=== PATIENT | male | born 1955 | race African-American/Black ===

== ENCOUNTER 2018-09-26 09:03 | Outpatient (CLI) | payer MEDICARE, MEDICAID ==
[~2018-09-26 09:03] MED LIST: Iopamidol 300 61% 100 ML VIAL FS ONE
--- NOTE | 2018-09-26 14:36 | CT ---
CT ABDOMEN AND PELVIS WITH IV CONTRAST: 09/26/2018 PROVIDED CLINICAL HISTORY: Colon mass. FINDINGS: The visualized lung bases are free of significant opacity. There are several tiny hypodensities involving the right hepatic lobe, too small to definitively glenn acterize. These could reflect cysts. The spleen, pancreas, kidneys, and adrenal glands appear unrem arkable, with the exception of a small left renal cyst. There is a focal area of apparent irregular mural thickening involving the descending colon, which ap pears somewhat redundant and tortuous in its mid portion. There are several lymph nodes within the a djacent mesentery, not pathologically enlarged but conspicuous given their proximity to the apparent mass. There is no bowel dilatation, inflammatory fat stranding, free fluid, or lymph node enlargement appar ent. There is a fat-containing right inguinal hernia. Vascular calcifications are seen. The osseous structures demonstrate no concerning osteoblastic or osteolytic lesions. Lower lumbar sp ine degenerative changes are seen. IMPRESSION: 1. Irregular focus of mural thickening involving the descending colon, presumably reflecting the pro vided clinical history of colon mass. 2. Adjacent mesenteric lymph nodes are seen, which could reflect local metastatic disease. 3. Tiny hepatic hypodensities, too small to definitively characterize. These could reflect cysts. Consider followup. POS: [facility]
== END 2018-09-26 09:04 | disposition home or self-care (01) ==
LOC: SCSCT 09:03
PROVIDERS: ATTEND Surgery
DX: K63.9 Disease of intestine, unspecified (principal); K63.89 Other specified diseases of intestine; K76.89 Other specified diseases of liver
CPT/HCPCS: 74177; 82565

== ENCOUNTER 2018-10-09 07:33 | Observation (INO) | payer MEDICARE, MEDICAID ==
[2018-10-09 08:39] LABS: #Eosinphils 0.1 thou/uL (0.0-0.7); #Monocytes 0.7 thou/uL (0.11-0.59); #Neutrophils 5.6 thou/uL (1.40-6.50); %Basophils 0.3 % (0.0-1.0); %Lymphocytes 12.9 % (21.0-51.0); %Monocytes 8.9 % (0.0-10.0); %Neutrophils 75.9 % (42.0-75.0); Hemoglobin 10.3 g/dL (14.0-18.0); Mean Corpuscular HGB CONC 31.3 g/dL (32.0-36.0); Mean Corpuscular Hemoglobin 26.7 pg (27.0-31.0); Mean Corpuscular Volume 85.1 fL (78.0-98.0); Mean Platelet Volume 7.3 fL (7.4-10.4); Platelet Count 365 thou/uL (130-400); RBC Distribution Width 13.2 % (11.5-14.5); Red Blood Cell (RBC) Count 3.86 mill/uL (4.70-6.10); White Blood Cell (WBC) Count 7.4 thou/uL (4.8-10.8)
[2018-10-09 09:05] LABS: INR-International Normal Ratio 1.1; PTT 27.2 SEC (22.9-36.1); Prothrombin Time 14.7 SEC (12.0-14.7)
[2018-10-09 09:11] LABS: ALT (SGPT) 17 U/L (8-55); AST (SGOT) 19 U/L (5-34); Alkaline Phosphatase 143 U/L (40-150); Anion Gap 14 mmol/L (10-20); BUN (Urea Nitrogen) 17 mg/dL (8.4-25.7); Bilirubin, Total 0.6 mg/dL (0.2-1.2); CK (CPK) 117 U/L (30-200); Calc. Creatinine Clearance 0 mL/min (70-130); Calcium 9.3 mg/dL (7.8-10.44); Carbon Dioxide 25 mmol/L (23-31); Chloride 103 mmol/L (98-107); Estimated GFR-MDRD 89; Globulin 2.6 g/dL (2.4-3.5); Glucose 95 mg/dL (80-115); Potassium 4.3 mmol/L (3.5-5.1); Protein, Total 6.6 g/dL (5.8-8.1); Sodium 138 mmol/L (136-145)
[2018-10-09 09:15] LABS: CKMB 0.8 ng/mL (0-6.6); Troponin I Less than 0.010 ng/mL (< 0.028)
[2018-10-09 10:18] LABS: Bilirubin Negative (Negative); Blood, Urine Negative (Negative); Clarity CLEAR (Clear); Glucose, Urine (Dipstick) Negative (Negative); Leukocyte Negative (Negative); Nitrite Negative (Negative); Protein, Urine (Dipstick) Trace mg/dL (Neg-Trace); Specific Gravity, Urine 1.024 (1.002-1.036); pH, Urine 6.5 (5.0-9.0)
[2018-10-09 11:45] VITALS: BMI 24.5
[2018-10-09] MEDS ORDERED: Ondansetron PF 4 MG/2 ML Vial IVP PRN ×2 (12:07→15:11)
[2018-10-09] MEDS ORDERED: Ondansetron ODT 4 MG TAB SL PRN (12:07)
[2018-10-09] MEDS ORDERED: Dextrose 50% Abboject 50 ML SYRINGE SLOW IVP PRN (15:11)
[2018-10-09] MEDS ORDERED: Dextrose 5% in Water 1,000 ML IV PRN (15:11)
[2018-10-09] MEDS ORDERED: hydrALAZINE 20 MG/ML VIAL SLOW IVP PRN (15:11)
[2018-10-09] MEDS ORDERED: Ondansetron ODT 4 MG TAB PO PRN (15:11)
[2018-10-09] MEDS ORDERED: HumaLOG 300 UNITS/3 ML VIAL SC PRN ×2 (15:11)
[2018-10-09] MEDS ORDERED: Acetaminophen 500 MG TAB PO PRN (15:11)
[2018-10-09] MEDS: Sodium Chloride 0.9% 1,000 ML IV SCH (15:56)
[2018-10-09] MEDS: Metoprolol Tartrate 50 MG TAB PO SCH (15:58)
--- NOTE | 2018-10-09 20:18 | HP ---
DATE OF ADMISSION: 10/09/2018 PRIMARY CARE PHYSICIAN: Lindsey Marcos. CHIEF COMPLAINT: Blood in the stool. HISTORY OF PRESENT ILLNESS: This is a 63-year-old male with a significant history o f recently diagnosed colon mass suspected malignant with recent endoscopy. Patient apparently was no sera with blood in the stool approximately 2 hours prior to evaluation in the emergency room. Patient had associated weakness, some mild abdominal cramping and does admit to taking aspirin and Plavix ch ronically. Patient states he has been on aspirin for many years with additional Plavix added in the last 2 months. Patient apparently had a near syncopal event while at home with his girlfriend lori ng him before completely passing out. Patient was briefly somnolent for a few seconds and regained c onsciousness. The girlfriend reports that the patient is currently scheduled for potential colon res ection on 10/16/2018. Patient denies any unilateral weakness, but does admit to a history of prior C VA x2 with residual right-sided weakness. Patient ambulates with the use of a cane and a rolling wal ker. Patient denies any other chronic medication changes, recent exposure history, chemical exposure s or fall. In the emergency room, patient received intravenous normal saline x1 liter and was referr ed to the observation unit. PAST MEDICAL HISTORY: 1. Cerebrovascular accident with residual right-sided weakness. 2. Colon mass suspicious for malignancy. 3. Hyperlipidemia. 4. Hypertension. 5. Diabetes mellitus type 2, on oral hypoglycemics. 6. History of seizure disorder. PAST SURGICAL HISTORY: Status post endoscopy with colon mass identified suspicious for malignancy. CURRENT MEDICATIONS: 1. Amlodipine 10 mg p.o. daily. 2. Lipitor 40 mg p.o. daily. 3. Plavix 75 mg p.o. daily. 4. Aricept 10 mg p.o. at bedtime. 5. Ferrous sulfate 325 mg p.o. daily. 6. Amaryl 2 mg p.o. q.a.m. 7. Hydrochlorothiazide 12.5 mg p.o. q.a.m. 8. Metoprolol tartrate 50 mg p.o. b.i.d. 9. Enteric-coated aspirin 81 mg p.o. daily. 10. Keppra 500 mg p.o. q.a.m. and 750 mg p.o. at bedtime. ALLERGIES: No known drug allergies. FAMILY HISTORY: Mother at age of 69 years. Father at age of 72 with a history of myocardi al infarction and diabetes mellitus. SOCIAL HISTORY: Patient is accompanied by his girlfriend who is also medical power of deputy commonwealth's attorney. No current alcohol, tobacco or illicit drug use. Ambulatory with a cane or rolling walker. Resides in [place], [place]. REVIEW OF SYSTEMS: The following complete review of systems was negative, unless otherwise mentioned in the HPI or below: Constitutional: Weight loss or gain, ability to conduct usual activities. Sk in: Rash, itching. Eyes: Double vision, pain. ENT/Mouth: Nose bleeding, neck stiffness, pain, te nderness. Cardiovascular: Palpitations, dyspnea on exertion, orthopnea. Respiratory: Shortness of breath, wheezing, cough, hemoptysis, fever or night sweats. Gastrointestinal: Poor appetite, abdom inal pain, heartburn, nausea, vomiting, constipation, or diarrhea. Genitourinary: Urgency, frequenc y, dysuria, nocturia. Musculoskeletal: Pain, swelling. Neurologic/Psychiatric: Anxiety, depressio n. Allergy/Immunologic: Skin rash, bleeding tendency. Otherwise negative except as stated per HPI. PHYSICAL EXAMINATION: VITAL SIGNS: Currently, blood pressure 132/72, pulse 54, respiratory rate 20, temperature 98 degrees Fahrenheit, O2 saturation 96% on room air. GENERAL APPEARANCE: This is a 63-year-old male, alert and oriented x1, pleasant, re sponsive, in no acute distress. HEENT: Pupils are equal, round, and reactive to light and accommodation. Extraocular muscles are in tact. No scleral icterus, no conjunctival injection. Nares patent. OP is clear. Teeth in fair rep air. NECK: Supple, no cervical adenopathy, no thyromegaly, no carotid bruits, no JVD appreciated. Cervic al spine with full active and passive range of motion. No meningeal signs appreciated. CHEST: Lungs are clear to auscultation bilaterally. CARDIOVASCULAR: S1, S2, without noted murmur, rub or gallop. ABDOMEN: Rounded, soft, nontender, nondistended. Bowel sounds are positive in all four quadrants. There is no hepatosplenomegaly, no abdominal bruits, no rebound or guarding appreciated. EXTREMITIES: Warm and dry with fair turgor. No clubbing, cyanosis or asymmetric edema appreciated. Pulses are palpable distally at the dorsalis pedis, posterior tibial, and popliteal arteries bilater ally. Capillary refill less than 2 seconds. NEUROLOGIC: Mild residual right upper extremity weakness. The patient not observed ambulatory durin g this exam. Alert and oriented x1. No other focal deficits appreciated. PERTINENT LABORATORY AND X-RAY FINDINGS: Complete metabolic profile within normal limits. Troponin I negative x1. CBC showed a white blood cell count of 7.4, hemoglobin 10, hematocrit 33, platelet co unt 365 with 76% neutrophils. PT 14.7, INR 1.1, PTT 27.2. Urinalysis negative. Stool Hemoccult pos itive x1 on 10/09/2018. CT of the abdomen and pelvis dated 09/26/2018 showed irregular focus of mura l thickening involving the descending colon suspicious for colonic mass. Adjacent mesenteric lymphad enopathy. EKG dated 10/09/2018 by my interpretation shows sinus mechanism with first-degree AV block . Normal R-wave progression noted in the precordial leads. Normal axis. No acute ST-T wave changes appreciated. ASSESSMENT AND PLAN: 1. Hematochezia. Patient will be observed on the telemetry unit. Suspect secondarily to dual antip latelet therapy in the context of recently diagnosed descending colon mass suspicious for carcinoma. We will hold aspirin and Plavix. Continue IV fluids with normal saline 100 mL per hour. Continue s erial H&H monitoring. Repeat CBC in the a.m. 2. Colonic mass. Suspected malignancy with recent endoscopy. Consider a General Surgery consultati on during this hospital course versus continuing regularly scheduled appointment for surgical interve ntion on 10/16/2018. 3. Near syncope. Suspect secondarily to #1. We will continue serial monitoring on the telemetry un it. Continue intravenous fluids as outlined previously. 4. Hypertension. Resume home antihypertensive regimen and monitor clinical response. 5. Diabetes mellitus type 2. Insulin sliding scale for reflexive coverage. Amaryl 2 mg p.o. q.a.m. Accu-Cheks a.c. and at bedtime. 6. Prophylaxis. Sequential compression devices while in bed. Protonix 40 mg p.o. daily. 7. Code status is FULL. Surrogate medical decision maker is Allison Currie.
[2018-10-09] MEDS ORDERED: levETIRAcetam 500 mg/5 ml Oral Solution PO SCH (21:00)
[2018-10-09] MEDS ORDERED: Donepezil HCl 10 MG TAB PO SCH (21:00)
[2018-10-10] MEDS: Sodium Chloride 0.9% 1,000 ML IV SCH ×2 (01:52→12:43)
[2018-10-10 03:55] LABS: Anion Gap 11 mmol/L (10-20); BUN (Urea Nitrogen) 13 mg/dL (8.4-25.7); Calc. Creatinine Clearance 90 mL/min (70-130); Calcium 8.8 mg/dL (7.8-10.44); Carbon Dioxide 25 mmol/L (23-31); Chloride 105 mmol/L (98-107); Estimated GFR-MDRD Greater than 90; Glucose 113 mg/dL (80-115); Potassium 3.5 mmol/L (3.5-5.1); Sodium 137 mmol/L (136-145)
[2018-10-10 04:16] LABS: Hemoglobin 9.3 g/dL (14.0-18.0); Hypochromia SLIGHT = 6-15 cells (100X) (0-5/hpf); Lymphocytes 27 % (21-51); MDiff Complete? YES; Mean Corpuscular HGB CONC 31.4 g/dL (32.0-36.0); Mean Corpuscular Hemoglobin 26.6 pg (27.0-31.0); Mean Corpuscular Volume 84.7 fL (78.0-98.0); Mean Platelet Volume 7.2 fL (7.4-10.4); Monocytes 3 % (0-10); Neutrophil 70 % (42-75); PLT Morphology Comment Appears Adequate; Platelet Count 350 thou/uL (130-400); RBC Distribution Width 13.2 % (11.5-14.5); White Blood Cell (WBC) Count 5.9 thou/uL (4.8-10.8)
[2018-10-10] MEDS ORDERED: Ferrous Sulfate 325 MG TAB PO SCH (08:00)
[2018-10-10] MEDS ORDERED: Glimepiride 2 MG TAB PO SCH (08:00)
[2018-10-10] MEDS ORDERED: levETIRAcetam 500 MG TAB PO SCH (09:00)
[2018-10-10] MEDS ORDERED: Hydrochlorothiazide 25 MG TAB PO SCH (09:00)
[2018-10-10] MEDS ORDERED: Atorvastatin Calcium 40 MG TAB PO SCH (09:00)
[2018-10-10] MEDS ORDERED: Amlodipine 10 MG TAB PO SCH (09:00)
[2018-10-10] MEDS: Metoprolol Tartrate 50 MG TAB PO SCH ×2 (09:40→18:32)
--- NOTE | 2018-10-10 14:58 | DIS ---
DATE OF ADMISSION: 10/09/2018 DATE OF DISCHARGE: 10/10/2018 DISCHARGE DIAGNOSES: 1. Hematochezia secondary to colonic mass and dual antiplatelet therapy with Plavix and aspirin, imp roved. 2. Colonic mass, suspected malignancy. 3. Near syncope secondary to hematochezia, resolved. 4. Dehydration, resolved. 5. Hypertension, stable. 6. Diabetes mellitus type 2. CONSULTATIONS: None. PERTINENT LAB AND X-RAY FINDINGS: Hemoglobin ranged between 9.3-10.3, MCV 85. PT 14.7, INR 1.1, PTT 27.2. Stool Hemoccult 10/09/2018, positive x1. HOSPITAL COURSE: The patient was observed on the telemetry unit after initially presenting with near syncopal episode and hematochezia in the context of recently diagnosed colonic mass, suspected for m alignancy. The patient is taking dual antiplatelet therapy with aspirin and Plavix, presenting with hematochezia. The patient was placed on IV fluids with normal saline throughout the hospital course and discontinued on aspirin and Plavix. Serial hemoglobin assessment showed mild decrease from admis sondra levels in the context of IV fluid hydration. The patient exhibited no recurrence of hematochezi a during the hospital course and was advanced from clear liquids to regular diet. Current recommenda tions are to continue followup with the General Surgery Service for likely partial colectomy on 10/16. I have examined the patient at the time of discharge and discussed followup instructions. Th e patient verbalized understanding and agreement, ready for discharge on 10/10/2018. DISCHARGE MEDICATIONS: 1. Amlodipine 10 mg 1 tab p.o. daily. 2. Lipitor 40 mg p.o. daily. 3. Aricept 10 mg p.o. at bedtime. 4. Ferrous sulfate 325 mg p.o. daily. 5. Amaryl 2 mg p.o. daily. 6. Hydrochlorothiazide 12.5 mg p.o. daily. 7. Metoprolol tartrate 50 mg p.o. b.i.d. 8. Keppra 500 mg p.o. q.a.m. and 750 mg p.o. at bedtime. 9. Aspirin, hold. 10. Plavix, hold. FOLLOWUP: The patient to follow up with his primary care provider, Dr. Kylee Coe within 7 days of discharge. The patient will follow up with Dr. Bo with General Surgery Service on 10/16/2018 . CONDITION ON DISCHARGE: Stable. ACTIVITY: Ad tres. DIET: ADA and heart healthy. CODE STATUS: Full. DISPOSITION: Home, 10/10/2018.
[2018-10-10 15:53] VITALS: BP 123/70; TEMP 98.4
[2018-10-10 16:42] LABS: Hemoglobin 10.2 g/dL (14.0-18.0)
== END 2018-10-10 18:26 | disposition home health service (06) ==
LOC: ERS 07:33 → 2SW 11:04
PROVIDERS: ADMIT Family Medicine; ATTEND Family Medicine
DX: K63.89 Other specified diseases of intestine (principal); K92.1 Melena; R55 Syncope and collapse; E86.0 Dehydration; I69.351 Hemiplegia and hemiparesis following cerebral infarction affecting right dominant side; E78.5 Hyperlipidemia, unspecified; I10 Essential (primary) hypertension; E11.9 Type 2 diabetes mellitus without complications; G40.909 Epilepsy, unspecified, not intractable, without status epilepticus; Z79.02 Long term (current) use of antithrombotics/antiplatelets; Z79.82 Long term (current) use of aspirin; Z79.84 Long term (current) use of oral hypoglycemic drugs; Z79.899 Other long term (current) drug therapy
CPT/HCPCS: 51701; 80048; 80053; 81003; 82274; 82550; 82553; 82962 ×2; 84484; 85007; 85014; 85018; 85025; 85027; 85610; 85730; 86850; 86900; 86901; 93005; 96360; 96361 ×3; 99285; G0378 ×2; 36415; 36416

== ENCOUNTER 2018-10-09 10:30 | Inpatient (IN) | payer MEDICARE, MEDICAID ==
[2018-10-16] MEDS ORDERED: Fentanyl 100 MCG/2 ML VIAL ONE ×3 (07:22→11:57)
[2018-10-16] MEDS ORDERED: Midazolam HCl 2 mg/2 ml Vial ONE ×2 (07:22→08:36)
[2018-10-16] MEDS ORDERED: cefOXitin 2 GM in Sodium Chloride 0.9% 100 ML IVPB SCH ×2 (07:45→17:00)
[2018-10-16] MEDS ORDERED: Bupivacaine/Epinephrine 0.25% 30 ML VIAL ONE (08:02)
[2018-10-16 08:10] LABS: Hemoglobin A1c 5.8 % (4.0-6.0)
[2018-10-16] MEDS ORDERED: Ondansetron PF 4 MG/2 ML Vial ONE ×2 (11:47→17:18)
[2018-10-16] MEDS ORDERED: Promethazine HCl 25 MG/ML VIAL ONE (12:29)
--- NOTE | 2018-10-16 13:15 | EKG ---
Test Reason : PREOP Blood Pressure : / mmHG Vent. Rate : 047 BPM Atrial Rate : 058 BPM P-R Int : 294 ms QRS Dur : 088 ms QT Int : 490 ms P-R-T Axes : 042 018 010 degrees QTc Int : 433 ms Sinus bradycardia with marked sinus arrhythmia with 1st degree A-V block Otherwise normal ECG When compared with ECG of 09-OCT-2018 07:43, (Unconfirmed) Criteria for Septal infarct are no longer Present Confirmed by JATINDER MCDONOUGH, DR. Mujica ([id number]) on 10/16/2018 1:15:03 PM Referred By: KRISTINA Confirmed By:DR. Sil TOBIAS MD
[2018-10-16] MEDS ORDERED: hydrALAZINE 20 MG/ML VIAL SLOW IVP PRN (15:43)
[2018-10-16] MEDS ORDERED: HumaLOG 300 UNITS/3 ML VIAL SC PRN (15:43)
[2018-10-16] MEDS ORDERED: Dextrose 5% in Water 1,000 ML IV PRN (15:43)
[2018-10-16] MEDS ORDERED: Fentanyl 100 MCG/2 ML VIAL SLOW IVP PRN (15:43)
[2018-10-16] MEDS ORDERED: Promethazine HCl 25 MG/ML VIAL IM PRN (15:43)
[2018-10-16] MEDS ORDERED: Dextrose 50% Abboject 50 ML SYRINGE SLOW IVP PRN (15:43)
[2018-10-16] MEDS ORDERED: Bupivacaine HCl 0.5%/Epinephrine 1:200,000/PF 30 ml Vial ONE (15:51)
[2018-10-16 16:39] VITALS: BMI 24.6
[2018-10-16] MEDS ORDERED: PHENYLEPHRINE-NS 100 MCG/ML 10 ML SYRINGE ONE (17:18)
[2018-10-16] MEDS ORDERED: ePHEDrine/0.9% NaCl/PF SYRINGE 50 mg/10 ml ONE (17:18)
[2018-10-16] MEDS ORDERED: Glycopyrrolate 0.2 MG/ML 5 ML SYRINGE ONE (17:18)
[2018-10-16] MEDS ORDERED: PROPOFOL 200 MG/20 ML VIAL ONE (17:18)
[2018-10-16] MEDS: Acetaminophen 1,000 MG in Premix Bag 1 BAG IVPB SCH ×2 (17:56→22:41)
[2018-10-16] MEDS: Sodium Chloride 0.9% 1,000 ML IV SCH (17:56)
[2018-10-16] MEDS: Donepezil HCl 10 MG TAB PO SCH (19:57)
[2018-10-16] MEDS: cefOXitin 2 GM in Sodium Chloride 0.9% 100 ML IVPB SCH (19:57)
[2018-10-16] MEDS: Famotidine 20 MG TAB PO SCH (19:58)
[2018-10-16] MEDS: Famotidine/PF 20 mg/2ml Vial SLOW IVP SCH (20:02)
[2018-10-16] MEDS: Enoxaparin Sodium 40 MG/0.4 ML SYRINGE SC SCH (20:02)
[2018-10-16] MEDS: levETIRAcetam 500 MG TAB PO SCH (22:22)
[2018-10-16] MEDS: Ondansetron PF 4 MG/2 ML Vial IVP PRN (22:41)
[2018-10-17] MEDS: cefOXitin 2 GM in Sodium Chloride 0.9% 100 ML IVPB SCH (03:03)
[2018-10-17] MEDS: Sodium Chloride 0.9% 1,000 ML IV SCH ×2 (03:09→20:32)
[2018-10-17 04:33] LABS: #Eosinphils 0.1 thou/uL (0.0-0.7); #Lymphocytes 1.5 thou/uL (1.20-3.40); #Monocytes 0.9 thou/uL (0.11-0.59); #Neutrophils 4.7 thou/uL (1.40-6.50); %Basophils 0.1 % (0.0-1.0); %Eosinophils 0.9 % (0.0-10.0); %Lymphocytes 21.2 % (21.0-51.0); %Monocytes 12.3 % (0.0-10.0); %Neutrophils 65.5 % (42.0-75.0); Hemoglobin 8.8 g/dL (14.0-18.0); Mean Corpuscular HGB CONC 32.5 g/dL (32.0-36.0); Mean Corpuscular Hemoglobin 27.3 pg (27.0-31.0); Mean Corpuscular Volume 84.1 fL (78.0-98.0); Mean Platelet Volume 7.5 fL (7.4-10.4); Platelet Count 354 thou/uL (130-400); RBC Distribution Width 13.2 % (11.5-14.5); Red Blood Cell (RBC) Count 3.23 mill/uL (4.70-6.10); White Blood Cell (WBC) Count 7.2 thou/uL (4.8-10.8)
[2018-10-17] MEDS: Fentanyl 100 MCG/2 ML VIAL SLOW IVP PRN ×2 (04:50→10:01)
[2018-10-17 04:53] LABS: Anion Gap 12 mmol/L (10-20); BUN (Urea Nitrogen) 8 mg/dL (8.4-25.7); Calc. Creatinine Clearance 70 mL/min (70-130); Calcium 8.8 mg/dL (7.8-10.44); Carbon Dioxide 26 mmol/L (23-31); Chloride 106 mmol/L (98-107); Estimated GFR-MDRD 69; Glucose 96 mg/dL (80-115); Potassium 3.6 mmol/L (3.5-5.1); Sodium 140 mmol/L (136-145)
[2018-10-17] MEDS: Acetaminophen 1,000 MG in Premix Bag 1 BAG IVPB SCH ×2 (05:01→14:45)
[2018-10-17] MEDS: Ondansetron PF 4 MG/2 ML Vial IVP PRN (05:19)
--- NOTE | 2018-10-17 07:18 | OP ---
DATE OF PROCEDURE: 10/16/2018 PREOPERATIVE DIAGNOSIS: Left colon mass. POSTOPERATIVE DIAGNOSIS: Left colon mass. PROCEDURE PERFORMED: Laparoscopic left colectomy. ANESTHESIA: General. ESTIMATED BLOOD LOSS: Minimal. COMPLICATIONS: None. SPECIMENS: Left colon and distal doughnut technique. DESCRIPTION OF PROCEDURE: The patient was taken to the operating room table after general anesthetic was obtained. Tejada was placed. The patient was placed in lithotomy position. He had preop TAP blocks placed by Anesthesia in preop holding. The abdomen and perineum were prepped and draped in sterile fashion. Left subcostal 5 mm Optiview trocar was placed in the usual fashion and obtained. 5 mm port was placed to the right of the umbilicus, 12 mm was port was placed in the right lower quadrant, and 5 mm port was placed suprapubic. The patient was placed in Trendelenburg position and the small bowel was rotated out of the pelvis. The peritoneum was incised on the medial aspect of the sigmoid colon mesentery at the base of the inferior mesenteric artery. Medial to lateral dissection was performed through the mesentery of the sigmoid colon. The ureter was found and excluded from the dissection. The LILLIANA artery was taken out at its base using a LigaSure. The LigaSure was then used to dissect posterior down towards the rectosigmoid junction. Here, a laparoscopic stapler was fired across the low sigmoid colon just above the peritoneal reflection. The colon was mobilized up paracolic gutter using cautery and LigaSure. The patient had sufficient colon, where mobilization of splenic flexure was not necessary. A 4 cm incision was made in the left lower quadrant and muscle-splitting incision was made into the abdomen. The small Hunter wound retractor was placed. The left colon was able to brought up through here and location was found above the palpable tumor for EEA placement. Colotomy was made and the anvil for the EEA was passed proximally with sharp end brought down on the antimesenteric surface of the colon. Just distal to the anvil, the colon was stapled off. The colon was sent to Path for final diagnosis. The distal staple line was marked using a suture. The proximal colon was placed back into the abdominal cavity. The Hunter was twisted and held in place using a Ernestine clamp. Pneumoinsufflation was reformed. The base of the EEA was brought up through the rectum and its sharp end brought down on the antimesenteric surface. This was connected to the anvil from above which was tightened down into the green zone and fired. No twist, no tension on the anastomosis, no evidence of ischemia to the ends. There were two good rings of tissue. The distal one was sent to Path for final distal margin. The pelvis was filled with saline. Air insufflation in the rectum showed no leakage. All port sites are hemostatic using local anesthetic. The 12 mm trocar site was closed using GraNee needle and Vicryl tie using PDS suture. The subcutaneous tissues were irrigated copiously using sterile solution until return to clear. This wound was closed using 3-0 Vicryl, 4-0 Monocryl, and Dermabond. The other incisions were closed using 4-0 Monocryl and Dermabond. The patient sent over to Recovery in stable condition. All instrument counts, needle counts, and lap counts were correct. Job ID: [id number]
[2018-10-17] MEDS: Famotidine/PF 20 mg/2ml Vial SLOW IVP SCH ×2 (07:51→20:32)
--- NOTE | 2018-10-17 14:11 | PRG ---
DATE OF SERVICE: 10/17/2018 SUBJECTIVE: This is postoperative day #1 laparoscopic left colectomy. Mr. Coe coughed yesterday afternoon when he tried clear liquids, so swallowing protocol was started and he has been made n.p.o. until a formal swallow evaluation is finished. This morning, he is more awake. He notes pain in his left lower side at the area of the biggest incision. He feels like he has to have a bowel movement. He is on the bedside toilet right now. OBJECTIVE: VITAL SIGNS: He is afebrile. Vital signs are stable. ABDOMEN: Soft and nondistended. There are some bowel sounds present. Wounds are healing well. LABORATORY DATA: White cell count is 7, hemoglobin 8.8, creatinine 1.26. ASSESSMENT: Postoperative day #1 left colectomy. PLAN: 1. He certainly needs to be more active, whether that involves physical therapy or walking program. 2. Question of swallowing issues. He is more awake now. I suspect he will be better. Needs to be on a liquid diet. Job ID: [id number]
[2018-10-17] MEDS: levETIRAcetam 500 MG TAB PO SCH ×2 (14:45→20:31)
[2018-10-17] MEDS: Amlodipine 10 MG TAB PO SCH (14:58)
[2018-10-17] MEDS: Metoprolol Tartrate 50 MG TAB PO SCH (14:59)
[2018-10-17] MEDS: Famotidine 20 MG TAB PO SCH ×2 (14:59→20:31)
[2018-10-17] MEDS: Donepezil HCl 10 MG TAB PO SCH (20:31)
[2018-10-17] MEDS: Enoxaparin Sodium 40 MG/0.4 ML SYRINGE SC SCH (20:31)
[2018-10-18] MEDS: Sodium Chloride 0.9% 1,000 ML IV SCH (08:46)
[2018-10-18] MEDS: Famotidine 20 MG TAB PO SCH ×2 (08:48→20:41)
[2018-10-18] MEDS: levETIRAcetam 500 MG TAB PO SCH ×2 (08:48→20:40)
[2018-10-18] MEDS: Metoprolol Tartrate 50 MG TAB PO SCH (08:48)
[2018-10-18] MEDS: Amlodipine 10 MG TAB PO SCH (08:48)
[2018-10-18] MEDS: Famotidine/PF 20 mg/2ml Vial SLOW IVP SCH ×2 (08:49→20:41)
--- NOTE | 2018-10-18 13:11 | PRG ---
DATE OF SERVICE: 10/18/2018 SUBJECTIVE: Mr. Coe is doing well. He is tolerating the liquids. He has been out of bed, but not really walking much. He denies nausea. OBJECTIVE: ABDOMEN: Soft, nondistended, nontender. Active bowel sounds. ASSESSMENT: Postoperative day #2 left colectomy. PLAN: Encouraged him to be more active with physical therapy assistance. Continue full liquids. Likely home tomorrow. They were offered snf, but they would prefer to be discharged home. Job ID: [id number]
[2018-10-18] MEDS: traMADol HCl 50 MG TAB PO PRN (13:23)
[2018-10-18] MEDS: HYDROcodone/Acetaminophen 5/325 mg Tablet PO PRN (15:00)
[2018-10-18] MEDS: Donepezil HCl 10 MG TAB PO SCH (20:40)
[2018-10-18] MEDS: Enoxaparin Sodium 40 MG/0.4 ML SYRINGE SC SCH (20:41)
[2018-10-19] MEDS: HYDROcodone/Acetaminophen 5/325 mg Tablet PO PRN ×3 (04:23→17:48)
[2018-10-19] MEDS: Amlodipine 10 MG TAB PO SCH (08:16)
[2018-10-19] MEDS: levETIRAcetam 500 MG TAB PO SCH (08:16)
[2018-10-19] MEDS: Famotidine/PF 20 mg/2ml Vial SLOW IVP SCH (08:16)
[2018-10-19] MEDS: Metoprolol Tartrate 50 MG TAB PO SCH (08:16)
[2018-10-19] MEDS: traMADol HCl 50 MG TAB PO PRN (08:16)
[2018-10-19] MEDS: Famotidine 20 MG TAB PO SCH (08:21)
--- NOTE | 2018-10-19 14:41 | DIS ---
DATE OF ADMISSION: 10/16/2018 DATE OF DISCHARGE: 10/19/2018 ADMITTING DIAGNOSIS: Left colon mass. DISCHARGE DIAGNOSIS: Left colon mass. PROCEDURE: Left colectomy by Dr. Bo without complication. CONDITION UPON DISCHARGE: Improved. STAFF: Dr. Bo. HOSPITAL COURSE: On postop day #3, the patient is doing well. He is tolerating full-liquid diet. His wounds are clear. He has had bowel movements. He is up as much as he usually is at home. ASSESSMENT: Status post left colectomy. PLAN: Doing well. Discharge to home. Final pathology shows T3N0 left colon cancer. Plan outpatient Oncology referral. Job ID: [id number]
[2018-10-19 16:13] VITALS: BP 122/77; TEMP 98.9
== END 2018-10-19 20:33 | disposition home or self-care (01) | DRG 331 ==
LOC: SURG A 10-16 06:24
PROVIDERS: ADMIT Surgery; ATTEND Surgery
PROC: 0DBN4ZZ Excision of Sigmoid Colon, Percutaneous Endoscopic Approach (ICD-10-PCS; principal; 2018-10-16)
DX: K63.9 Disease of intestine, unspecified (principal)
CPT/HCPCS: 36415; 36416; 80048; 83036; 85025; 88305; 88309; 88313; 88341; 88342; 93005; 93010; G8978-GP-CM; G8979-GP-CJ; G8996-GN-CJ; G8997-GN-CJ; J0131; J0670; J0694; J1650; J2250; J2405; J2550; J2704; J3010; J7050; S0028

== ENCOUNTER 2018-10-29 11:15 | Emergency (ER) | payer MEDICARE, MEDICAID ==
[2018-10-29 13:30] LABS: #Eosinphils 0.2 thou/uL (0.0-0.7); #Lymphocytes 1.3 thou/uL (1.20-3.40); #Monocytes 0.6 thou/uL (0.11-0.59); #Neutrophils 5.2 thou/uL (1.40-6.50); %Basophils 0.6 % (0.0-1.0); %Eosinophils 2.7 % (0.0-10.0); %Monocytes 8.1 % (0.0-10.0); %Neutrophils 70.6 % (42.0-75.0); Hemoglobin 10.5 g/dL (14.0-18.0); Mean Corpuscular HGB CONC 32.2 g/dL (32.0-36.0); Mean Corpuscular Hemoglobin 26.6 pg (27.0-31.0); Mean Corpuscular Volume 82.6 fL (78.0-98.0); Platelet Count 656 thou/uL (130-400); RBC Distribution Width 13.1 % (11.5-14.5); Red Blood Cell (RBC) Count 3.93 mill/uL (4.70-6.10); White Blood Cell (WBC) Count 7.3 thou/uL (4.8-10.8)
[2018-10-29 13:34] LABS: ALT (SGPT) 46 U/L (8-55); AST (SGOT) 32 U/L (5-34); Albumin 4.1 g/dL (3.4-4.8); Alkaline Phosphatase 110 U/L (40-150); Anion Gap 11 mmol/L (10-20); BUN (Urea Nitrogen) 14 mg/dL (8.4-25.7); Bilirubin, Total 0.3 mg/dL (0.2-1.2); Calc. Creatinine Clearance 0 mL/min (70-130); Calcium 9.8 mg/dL (7.8-10.44); Carbon Dioxide 30 mmol/L (23-31); Chloride 101 mmol/L (98-107); Estimated GFR-MDRD 73; Globulin 3.9 g/dL (2.4-3.5); Glucose 103 mg/dL (80-115); Lipase 43 U/L (8-78); Potassium 3.4 mmol/L (3.5-5.1); Sodium 139 mmol/L (136-145)
[2018-10-29 14:38] LABS: Bilirubin Negative (Negative); Blood, Urine Negative (Negative); Clarity CLEAR (Clear); Glucose, Urine (Dipstick) Negative (Negative); Leukocyte Negative (Negative); Nitrite Negative (Negative); Protein, Urine (Dipstick) 30 mg/dL (Neg-Trace); Specific Gravity, Urine 1.022 (1.002-1.036); Urobilinogen 0.2 mg/dL (0.2-1.0); pH, Urine 6.5 (5.0-9.0)
[2018-10-29 14:52] LABS: Bacteria/HPF None Seen HPF (None Seen); Pathc Cast-AUWi Flag 2.03 (0-2.49); RBC/HPF 0-3 HPF (0-3); Squamous Epithelial 0-3 HPF (0-3); WBC/HPF 0-3 HPF (0-3)
[2018-10-29 15:01] LABS: Hyaline Casts/LPF 0-3 HYALINE CAST LPF (0-3 Hyaline); Renal Epithelial None Seen HPF (0-3); Transitional Epithelial NONE SEEN HPF (0-3)
== END 2018-10-29 15:42 | disposition home or self-care (01) ==
LOC: ERS 11:15
DX: G89.18 Other acute postprocedural pain (principal); R10.9 Unspecified abdominal pain; R53.1 Weakness; E11.9 Type 2 diabetes mellitus without complications; E78.5 Hyperlipidemia, unspecified; I10 Essential (primary) hypertension; Z86.73 Personal history of transient ischemic attack (TIA), and cerebral infarction without residual deficits; Z87.891 Personal history of nicotine dependence
CPT/HCPCS: 80053; 81003; 81015; 83690; 85025; 96360; 96361; 99211; G0463